=== PATIENT | female | born 1985 | race African-American/Black ===

== ENCOUNTER 2025-01-27 18:42 | Emergency (ER) | payer MEDICAID ==
[~2025-01-27] VITALS: Ht 180.3 cm; Wt 79.8 kg
[2025-01-27 18:55] VITALS: O2SAT 99
[2025-01-27 18:56] VITALS: TEMP 36.6; O2SAT 99
[2025-01-27 20:03] VITALS: TEMP 97.9
[2025-01-27] MEDS: LIDOCAINE 5% PATCH TOP SCH (20:03)
[2025-01-27] MEDS: ACETAMINOPHEN 325MG TABLET PO ONE (20:03)
[2025-01-27] MEDS ORDERED: LIDO-53 TP (20:33)
[2025-01-27] MEDS ORDERED: ACET-2708 MT (20:33)
[2025-01-27] MEDS ORDERED: GABA-529 MT (21:19)
[2025-01-27 21:37] VITALS: BP 124/79; PULSE 83; RESP 16
[2025-01-27] MEDS: KETOROLAC 30MG/ML VIAL IM ONE (21:37)
[2025-01-27] MEDS: GABAPENTIN 100MG CAPSULE PO ONE (21:37)
== END 2025-01-27 22:18 | disposition home or self-care (01) ==
LOC: ER 18:42
DX: M54.2 Cervicalgia (principal); Z79.899 Other long term (current) drug therapy
CPT/HCPCS: 81025; 96372; 99284; J1885; Z7610